=== PATIENT | male | born 1990 | race Caucasian/White ===

== ENCOUNTER 2022-07-01 09:55 | Emergency (ER) | payer OTHER ==
[~2022-07-01 09:55] MED LIST: ATARAX25 MG PO; CALCIUM500 MG PO; LOPRESSOR25 MG PO; VITAMIN D50000 UNIT PO
[2022-07-01 11:01] LABS: BASOPHIL 0.6 % (0-2); EOSINOPHIL 2.6 % (0-5); HCT 43.8 % (42.0-52.0); HGB 14.9 g/dl (13.2-18.0); LYMPHOCYTE 34.1 % (15-48); MCH 29.7 pg (25.0-31.0); MCV 87.3 fL (78.0-100.0); MONOCYTE 10.1 % (0-12); MPV 9.9 fL (6.0-9.5); NEUTROPHIL 52.2 % (41-80); NRBC 0; PLT 205 K/uL (150-400); RBC 5.02 M/uL (4.70-6.00); RDW 13.7 % (11.5-14.0); WBC 6.9 K/uL (4.0-10.5)
[2022-07-01 11:36] LABS: CORONAVIRUS 2019 SARS-COV-2 NEGATIVE (NEGATIVE); INFLUENZA A NAA NEGATIVE (NEGATIVE)
[2022-07-01 11:52] LABS: BUN/CREAT RATIO (CALC) 16.9 RATIO; CREATININE 0.77 mg/dL (0.67-1.17); POTASSIUM 3.8 mmol/L (3.5-5.1)
[2022-07-01] MEDS ORDERED: PREDNISONE 20MG20 MG PO (12:13)
[2022-07-01] MEDS ORDERED: AZITHROMYCIN250 MG PO (12:13)
== END 2022-07-01 12:22 | disposition home or self-care (01) ==
LOC: FER 09:55
PROVIDERS: Internal Medicine
DX: J02.9 Acute pharyngitis, unspecified (principal); Z20.822 Contact with and (suspected) exposure to COVID-19; Z87.891 Personal history of nicotine dependence; Z88.0 Allergy status to penicillin
CPT/HCPCS: 36415; 80048; 85025; 87880; 96372; 99283; J1100; J1885; U0002